=== PATIENT | female | born 1950 | race Caucasian/White ===

== ENCOUNTER → 2017-02-07 | Outpatient (CLI) | payer BC ==
[~2017-02-07] MED LIST: AMLO5TAB4 PO; ASPCH81X PO; FLNIN/ NAE; QVRINH40 INH; SIMV-151 PO
--- NOTE | 2017-02-07 14:27 | MAMMOGRAPHY REPORT ---
BILATERAL DIGITAL SCREENING MAMMOGRAM TOMOSYNTHESIS WITH CAD: 02/07/2017 CLINICAL HISTORY: Routine screening. Patient has no complaints. TECHNIQUE: Bilateral breast tomosynthesis in addition to standard 2D mammography was performed. Curre nt study was also evaluated with a Computer Aided Detection (CAD) system. COMPARISON: Comparison is made to exams dated: 02/05/2016 mammogram, 01/23/2015 mammogram, 01/10/2014 m ammogram, 01/09/2013 mammogram, 01/05/2012 mammogram, and 01/01/2011 mammogram - [facility]. BREAST COMPOSITION: There are scattered areas of fibroglandular density in both breasts. FINDINGS: There is a 6 mm focal asymmetry with associated architectural distortion in the lateral po sterior right breast, near the fatglandular interface, for which additional targeted ultrasound and possible additional mammographic views are recommended. Another possible focal area of architectural distortion is seen in the slightly medial posterior right breast, near the fatglandular interface, thought to project superiorly based on the MLO view. Additional spot compression totals and is is vi ews and possible ultrasound are recommended. A third possible area of architectural distortion is se en in the lateral posterior left breast on the CC view, for which additional spot compression tomosyn thesis views and possible ultrasound are recommended. There are scattered benign round and rim calcifications bilaterally, and a stable fede-shaped biopsy m arker clip in the 12:00 right breast. No other suspicious mass, architectural distortion or cluster o f microcalcifications is seen. IMPRESSION: ACR BI-RADS CATEGORY 0: INCOMPLETE EVALUATION: NEED ADDITIONAL IMAGING EVALUATION The bilateral areas of architectural distortion and right lateral asymmetry with associated intern architect ural distortion need additional imaging evaluation. The patient will be called to schedule an appointment. Approximately 10% of breast cancers are not detected with mammography. A negative mammographic report should not delay biopsy if a clinically suggestive mass is present. Xenia Holt M.D. ay/:02/07/2017 09:24:55 Beamer Hand: Reba VALDEZ)(Mark), [facility] letter sent: Addl Imaging 0 BI-RADS Code: ACR BI-RADS Category 0: Incomplete Evaluation: Need Additional Imaging Evaluation
== END | disposition home or self-care (01) ==
LOC: C.MAMM 08:51
PROVIDERS: ATTEND Family Medicine
DX: Z12.31 Encounter for screening mammogram for malignant neoplasm of breast (principal); N64.89 Other specified disorders of breast

== ENCOUNTER → 2017-02-16 | Outpatient (CLI) | payer BC ==
--- NOTE | 2017-02-17 07:49 | MAMMOGRAPHY REPORT ---
BILATERAL DIGITAL DIAGNOSTIC MAMMOGRAM TOMOSYNTHESIS AND TARGETED RIGHT ULTRASOUND: 02/16/2017 CLINICAL HISTORY: Callback from screening mammogram for possible architectural distortion bilaterally . TECHNIQUE: Breast tomosynthesis in addition to standard 2D mammography was performed. Bilateral spo t compression CC and MLO tomosynthesis images including C views were obtained. COMPARISON: Comparison is made to exams dated: 02/07/2017 mammogram, 02/05/2016 mammogram, 01/23/2015 m ammogram, 01/10/2014 mammogram, 01/09/2013 mammogram, and 01/05/2012 mammogram - [facility]. BREAST COMPOSITION: There are scattered areas of fibroglandular density in both breasts. FINDINGS: Spot compression views demonstrate probable subtle architectural distortion within the rig ht upper outer quadrant posteriorly. Additionally, there is an area of focal architectural distortio n in the right 12:00 to 12:30 posterior breast, best seen on the cc tomosynthesis images. The possib le architectural distortion in the left breast does not persist on the additional images, and is ther efore felt to represent normal fibroglandular tissue. Targeted ultrasound was performed of the 2 areas of architectural distortion in the right breast. In the right breast at 12:00, 4 cm from the nipple, there is an ill-defined focal hypoechoic shadowing region which measures 3 x 3 mm. When reviewing the mammogram, this likely represents shadowing from a biopsy marker clip from prior posterior stereotactic biopsy. In the right breast at 9:00, 14 cm fr om the nipple, there is an ill-defined hypoechoic heterogeneous mass which measures 1.1 x 0.6 x 0.6 c m. This is felt to correspond with the lateral architectural distortion and is indeterminant. IMPRESSION: ACR BI-RADS CATEGORY 4: SUSPICIOUS, TARGETED ULTRASOUND ACR BI-RADS CATEGORY 4: SUSPICIO US 1. Subtle focal architectural distortion in the right upper outer quadrant, with a corresponding hyp oechoic 1.1 cm mass in the right breast at 9:00 on ultrasound. The mass is indeterminate and ultraso und-guided core needle biopsy is recommended for further evaluation. 2. An additional area of architectural distortion in the right 12:00 to 12:30 posterior breast, with out a clear sonographic correlate evident. The finding is indeterminate and stereotactic tomosynthes is guided biopsy is recommended for further evaluation. 3. No persistent architectural distortion in the left breast mammographically. Findings are benign and compatible with normal fibroglandular tissue. A phone call was made to the physician's office to confirm faxed results were received. The patient has been verbally notified of the results. She tentatively scheduled the biopsies before leaving the department. Approximately 10% of breast cancers are not detected with mammography. A negative mammographic report should not delay biopsy if a clinically suggestive mass is present. Nataliia Tracy M.D. ah/:02/16/2017 12:25:07 Image Processing Engineer: Nataly PAN(Eliot)(Mark), [facility] letter sent: Abnormal 4/5 BI-RADS Code: ACR BI-RADS Category 4: Suspicious Ultrasound BI-RADS: ACR BI-RADS Category 4: Suspici ous
== END | disposition home or self-care (01) ==
LOC: C.MAMM 10:08
PROVIDERS: ATTEND Family Medicine
DX: N64.9 Disorder of breast, unspecified (principal); N63.10 Unspecified lump in the right breast, unspecified quadrant

== ENCOUNTER → 2017-02-23 | Outpatient (CLI) | payer BC ==
--- NOTE | 2017-02-23 14:15 | Discharge Instructions ---
Discharge Instructions Procedure Procedure Date: Feb 23, 2017. Reason for visit: Right Masses X2; Core Biopsy. Discharge Discharge Date: Feb 23, 2017. Discharge Diagnosis: status post breast biopsy Instructions Activity Recommendations: Additional Limitations (see below) Return to School/Work: no limitations Recommended Home Diet: No Limitations Provider Instructions: ACTIVITY RECOMMENDATIONS: * No lifting, pushing, pulling or exercising the affected side for three days. RETURN TO SCHOOL/WORK: * You may return to work/school after the procedure, but do not perform any strenuous activities for 24 to 48 hours. MEDICATIONS: * Tylenol (two 325 mg) every four to six hours if needed for mild pain (if not allergic to Tylenol). DIET: * Resume previous diet. SPECIAL CARE INSTRUCTIONS: * Keep biopsy site dry for 24 hours. May shower after 24 hours, but do not soak (bathe) incision. * May remove Tegaderm (plastic patch) tomorrow AFTER showering. * Leave the steri-strips on for one week. Allow the steri-strips to fall off by themselves. If not off after one week, you may remove them. You may place a Bandaid crosswise over the strips, if desired. * Apply ice 10 minutes on and 10 minutes off as needed. * Wear a bra at bedtime to sleep more comfortably for 2-3 days. * Your referring physician should have the results after approximately 5 to 7 business days. * Call for unusual bleeding, fever, drainage, etc or if you have any questions call during normal business hours or after hours call Dr Tracy, . FOLLOW UP VISIT: Follow-up with Referring Physician as scheduled. Allergies Coded Allergies: Amoxicillin (Verified Allergy, Intermediate, HIVES, 03/19/14) Ether (Verified Allergy, Unknown, 06/06/09) Thiopental (Verified Allergy, Unknown, 06/06/09) [place] Recommendations: Call your doctor if: * Temperature above 101 degrees * Pain not relieved by pain medicine ordered * There is increased drainage or redness from any incision * You have any unanswered questions or concerns. Your Doctors Instructions noted above were prepared by provider Nataliia Tracy. Patient Signature Section: Patient Instructions Signature Page Georgia Ibarra Patient (or Guardian) Signature/Date: I have read and understand the instructions given to me by my caregivers. Caregiver/RN/Doctor Signature/Date: The above-named patient and/or guardian has received patient instructions on this date. + Original Patient Signature Page (only) stays with chart. Please make copy for patient.
--- NOTE | 2017-02-23 14:23 | MAMMOGRAPHY REPORT ---
ULTRASOUND GUIDED BIOPSY RIGHT BREAST: 02/23/2017 CLINICAL HISTORY: Right 9:00 breast mass. PATIENT CONSENT: The procedure, risks and benefits were discussed with the patient and informed writt en consent was obtained. A timeout was performed immediately prior to the procedure. PROCEDURE DESCRIPTION: With ultrasound guidance, aseptic technique, and lidocaine as the local anesth etic (1% lidocaine to anesthetize the skin and 1% lidocaine with epinephrine to anesthetize the deepe r tissues), the mass of concern in the right 9:00 breast, 14 cm from the nipple, was sampled 5 times with a 14-gauge achieve biopsy needle. Immediately thereafter, with ultrasound guidance, aseptic johana hnique, and lidocaine as the local anesthetic, a metallic localizer ribbon-shaped clip was placed at the biopsy site. Direct pressure was applied to the site immediately post procedure and hemostasis w as achieved. Postprocedure unilateral mammograms were performed to confirm placement of the clip in the expected location of the breast mass. The patient tolerated the procedure without complication. She was given wound care instructions. The specimens were sent to pathology for analysis. COMPARISON: Comparison is made to exams dated: 02/16/2017 mammogram, 02/16/2017 ultrasound, 7 mammogram, 02/05/2016 mammogram, 01/23/2015 mammogram, and 01/10/2014 mammogram - [facility]. IMPRESSION: ULTRASOUND GUIDED BIOPSY Ultrasound-guided core needle biopsy of the right 9:00 breast mass, with clip placement. The patient will receive pathology results from her referring provider. Nataliia Tracy M.D. ah/:02/23/2017 14:17:25 Quencher Operator: Reba VALDEZ)(Mark), [facility]
--- NOTE | 2017-02-24 14:33 | MAMMOGRAPHY REPORT ---
STEREOTACTIC GUIDED BIOPSY RIGHT BREAST: 02/23/2017 CLINICAL HISTORY: Focal architectural distortion in the right 12 to 12:30 breast. PATIENT CONSENT: The procedure, risks, benefits, and alternatives of stereotactic biopsy with clip pl acement were discussed with the patient, and verbal and written consent was obtained. A timeout was performed immediately prior to the procedure. PROCEDURE DESCRIPTION: With stereotactic tomosynthesis guidance, aseptic technique, and lidocaine as a local anesthetic (1% lidocaine to anesthetize the skin and 1% lidocaine with epinephrine to anesthe tize the deeper tissues), the focal area of architectural distortion in the right 12 to 12:30 breast was sampled multiple times with a 9-gauge vacuum-assisted biopsy needle ([employer]). The path of a pproach was craniocaudal. A metallic marker clip was placed at the biopsy site. This was confirmed on postprocedure mammograms. Direct pressure was applied at the biopsy site and hemostasis was readi ly achieved. The patient tolerated the procedure without complication. She was given wound care ins tructions. COMPARISON: Comparison is made to exams dated: 02/16/2017 mammogram, 02/16/2017 ultrasound, 7 mammogram, 02/05/2016 mammogram, 01/23/2015 mammogram, and 01/10/2014 mammogram - [facility]. IMPRESSION: STEREOTACTIC GUIDED BIOPSY Tomosynthesis stereotactic-guided biopsy of the area of architectural distortion in the right 12 to 1 2:30 breast, with clip placement. The patient will receive pathology results from her referring prov ider. Nataliia Tracy M.D. /:02/23/2017 15:00:03 Tooling Supervisor: Nataly Alejandra, [facility]
--- NOTE | 2017-02-24 14:33 | MAMMOGRAPHY REPORT ---
UNILATERAL RIGHT DIGITAL DIAGNOSTIC MAMMOGRAM TOMOSYNTHESIS: 02/23/2017 CLINICAL HISTORY: Status post right breast biopsies. TECHNIQUE: Breast tomosynthesis in addition to standard 2D mammography was performed. Postprocedura l right CC and ML tomosynthesis images including C views were obtained. COMPARISON: Comparison is made to exams dated: 02/23/2017 stereotactic biopsy, 02/16/2017 mammogram, 02/07/2017 mammogram, 02/05/2016 mammogram, and 01/23/2015 mammogram - [facility]. BREAST COMPOSITION: There are scattered areas of fibroglandular density in the right breast. FINDINGS: A new ribbon-shaped biopsy marker clip is seen at the site of the biopsied right 9:[address] mass. A new T-shaped biopsy marker clip and postbiopsy changes are seen in the region of the biop sied architectural distortion in the right 12 to 12:30 breast posteriorly. A biopsy marker clip is a gain noted in the right 12:00 breast middle depth from prior benign biopsy. IMPRESSION: POST PROCEDURE IMAGING FOR MARKER PLACEMENT New biopsy marker clips status post right breast biopsies 2. Pathology results are pending. Approximately 10% of breast cancers are not detected with mammography. A negative mammographic report should not delay biopsy if a clinically suggestive mass is present. Nataliia Tracy M.D. /:02/23/2017 15:02:17 Torch Cutter: Nataly Alejandra, [facility] BI-RADS Code: Post Procedure Imaging For Marker Placement
== END | disposition home or self-care (01) ==
LOC: C.MAMM 13:29
PROVIDERS: ATTEND Family Medicine
DX: C50.911 Malignant neoplasm of unspecified site of right female breast (principal); R92.8 Other abnormal and inconclusive findings on diagnostic imaging of breast

== ENCOUNTER → 2017-07-07 | Outpatient (CLI) | payer BC ==
[~2017-07-07] MED LIST changes: +ANAS1TAB19 PO; +CALC8.5C PO; +CHOL1000 PO; -FLNIN/ NAE; +IBUP-1050 PO; +POLYSOL4 OP; -QVRINH40 INH
[2017-07-07 13:38] VITALS: BP 111/69; PULSE 90; TEMP 36.7; O2SAT 97
--- NOTE | 2017-07-07 14:16 | Radiation Oncology Follow-Up ---
Radiation Oncology Follow-Up Date of Visit Jul 07, 2017. Reason For Visit 1-month follow-up and cancer survivorship care plan no Radiation Completion Date 06/07/17 Hypo Diagnosis (1) Breast cancer Onset Date: 02/23/2017 Stage: l Permanent Comment: Abnormal right breast mammogram Status post ultrasound-guided core needle biopsy and stereotactic biopsy 2016 Core needle biopsy positive for infiltrating ductal carcinoma, stereotactic biopsy benign Estrogen receptor positive, progesterone receptor positive and HER-2/nicolas negative Status post lumpectomy and sentinel lymph node biopsy 03/30/2017 Invasive mammary carcinoma Stage pT1c [id number] Oncotype DX score of 21 Status post completion of radiation therapy utilizing hypofractionation. Radiation completed June 07, 2017 received 5130 cGy. Last Edited By: Nette Carbajal on Jul 12, 2017 09:46 History of Present Illness Ms. Ibarra presented with an abnormal mammogram. She underwent a bilateral screening mammogram on 02/07/2017 which revealed architectural distortion bilaterally and right lateral asymmetry associated with architectural distortion requiring further imaging. The patient was brought back on 2016 for a bilateral diagnostic mammogram Tomosynthesis and targeted right ultrasound which revealed: "IMPRESSION: ACR BI-RADS CATEGORY 4: SUSPICIOUS, TARGETED ULTRASOUND ACR BI-RADS CATEGORY 4: SUSPICIOUS 1. Subtle focal architectural distortion in the right upper outer quadrant, with a corresponding hypoechoic 1.1 cm mass in the right breast at 9:00 on ultrasound. The mass is indeterminate and ultrasound-guided core needle biopsy is recommended for further evaluation. 2. An additional area of architectural distortion in the right 12:00 to 12:30 posterior breast, without a clear sonographic correlate evident. The finding is indeterminate and stereotactic tomosynthesis guided biopsy is recommended for further evaluation. 3. No persistent architectural distortion in the left breast mammographically. Findings are benign and compatible with normal fibroglandular tissue." She underwent an ultrasound-guided biopsy of 2 masses in the right breast, one at 9 o'clock position in the other at the 12 o'clock position, on 02/23/2017. The biopsy of the mass at the 12 o'clock position in the right breast revealed no evidence of disease. The biopsy of the mass in the right breast at the 9 o' clock position revealed invasive ductal carcinoma that is grade 1 and was estrogen receptor positive, progesterone receptor positive and HER-2 negative with no evidence of lymphovascular space invasion or ductal carcinoma in situ. The patient underwent a right breast lumpectomy with sentinel lymph node biopsy on 03/30/[address] Harry Renee. Pathology revealed invasive ductal carcinoma that was unifocal and was 15 mm in the greatest dimension. The tumor was grade 1 with evidence of ductal carcinoma in situ. The margins were negative and the closest margin was 7 mm for both invasive ductal carcinoma and DCIS. One sentinel lymph node was excised and was negative for metastatic carcinoma. The patient was pT1cN0(sn). The patient was seen by Dr. Mauricio Mascorro who did briefly discuss anti- hormonal therapy and has sent the patient's pathology specimen for analysis by Oncotype DX. This came back with a score of 21. The final decision was to forego chemotherapy. She returned to our office and underwent a CT simulation. She was found to be a candidate for hypo-fractionation. Treatment was completed June 07, 2017. She received 5130 cGy. Interim History She has been doing well over the past month. She did have skin changes. There was redness that resolved. She then had a darker discoloration to the skin with itching. She had some areas of dry skin. These are steadily improving and resolving. There was discomfort and that has now resolved. She has been seen in medical oncology and has started Arimidex. She did not report side effects. She had fatigue and this steadily improved. Allergies Coded Allergies: Amoxicillin (Verified Allergy, Intermediate, HIVES, 03/22/17) Ether (Verified Allergy, Unknown, SEVERE OCNHG-GSODGEN-SF A CHILD, ) Thiopental (Verified Allergy, Unknown, SODIUM PENTOTHAL-SWORE AND GOT AGGRESSIVE, 03/22/17) A TEEN WITH WISDOM TEETH SURG Home Medications Scheduled Amlodipine Besylate (Norvasc), 5 MG PO QAM Anastrozole (Arimidex), 1 TAB PO DAILY Aspirin (Aspirin Chewable), 81 MG PO QAM Calcium W/ Vitamins D & K (Viactiv), 1 TAB PO QAM Cholecalciferol (Vitamin D3), 1 TAB PO QAM Ibuprofen (Advil), 400 MG PO PRN Simvastatin (Simvastatin), 20 MG PO QPM Scheduled PRN Polyethylene Glycol-Propylene (Systane), 1 DROPS OP BID PRN for lockstitch lining setter of Systems Gastrointestinal: Symptoms: WNL GI Comments: Indigestion/Reflux Better Oral: Symptoms: No Problems Respiratory: Symptoms: WNL Urinary: Symptoms: WNL Skin: Symptoms: Dry Desquamation Other Skin Symptoms: Skin discoloration per patient report Breast: Right Upper Arm Measurement: 32.8 Right Mid Arm Measurement: 27.0 Right Wrist Measurement: 16.1 Left Upper Arm Measurement: 33.9 Left Mid Arm Measurement: 27.4 Left Wrist Measurement: 16.0 Arm Dominence: Right Physical Exam Vital Signs Date Time Temp Pulse Resp B/P (MAP) Pulse Ox O2 Delivery O2 Flow Rate FiO2 07/07/17 13:38 36.7 90 16 111/69 97 Fatigue: None General Appearance: no apparent distress Eyes: normal inspection, EOMI ENT: normal ENT inspection, hearing grossly normal Neck: no adenopathy, thyroid normal Respiratory/Chest: lungs clear, no respiratory distress, no accessory muscle use Breast: Breast examination reveals resolving hyperpigmentation of the right breast. She has well-healed incisions. There are no masses or tenderness and no axillary adenopathy. She has no skin retractions or nipple changes. Using the Hudson score cosmesis she has a good outcome. The left breast showed no masses or tenderness and no axillary adenopathy. Cardiovascular: regular rate, rhythm, no gallop, no murmur Extremities: no pedal edema Neurologic/Psychiatric: no motor/sensory deficits, alert, normal mood/affect Skin: warm/dry Pain Management Patient Reports Pain: No Pain Location: None Patient Preferred Pain Scale: 0 - 10 Initial Pain Intensity: 0.0 Pain Management Plan She denied pain therefore requires no pain management. Laboratory Laboratory Results: not applicable Pathology Pathology Results: not applicable Imaging Imaging Studies: not applicable Assessment & Plan Plan: She was seen and examined by Dr. Medina. She will continue regular follow- up with medical oncology and her primary care physician. She is going to continue using Aquaphor to the area of of skin dryness. Mammography was scheduled for the right breast in 2 months and bilateral mammography in 8 months. These will be digital diagnostic mammograms. Today we completed a cancer survivorship care plan. A copy of the document was given to the patient. She was given a survivorship booklet. She will continue on the antiestrogen therapy. We asked her to return to our office in 6 months. She may call if she has any questions or concerns in the interim. Assessment & Plan (Attending) I agree with note created by Nette Carbajal PA-C. I reviewed the patient's chart and information with her. I have examined and evaluated the patient. I reviewed relevant clinical information and answered the patient's and/or family' s questions. STAPLE SIDE LASTER Total Time In Follow-Up I spent 20 minutes speaking to the patient in performing examination. I spent 20 minutes reviewing information, completing the survivorship document, and completing this note. Total Time (Attending) In Follow-Up I spent 15 minutes examining and counseling the patient. STAPLE SIDE LASTER Copy To Harry Renee M.D.; Mauricio Mascorro MD; Yarelis Hidalgo MD Problem Qualifiers (1) Breast cancer: Breast location: central portion of breast Estrogen receptor status: positive Patient sex: female Laterality: right Qualified Codes: C50.111 - Malignant neoplasm of central portion of right female breast; Z17.0 - Estrogen receptor positive status [ER+]
== END | disposition home or self-care (01) ==
LOC: C.ONC 13:24
PROVIDERS: ATTEND Physician Assistant Medical
DX: Z08 Encounter for follow-up examination after completed treatment for malignant neoplasm (principal); Z92.3 Personal history of irradiation; Z85.3 Personal history of malignant neoplasm of breast

== ENCOUNTER → 2017-07-27 | Outpatient (CLI) | payer BC | END | disposition home or self-care (01) | LOC: C.LAB 13:49 | PROVIDERS: ATTEND Family Medicine | DX: E78.5 Hyperlipidemia, unspecified (principal) ==

== ENCOUNTER → 2017-09-06 | Outpatient (CLI) | payer BC ==
--- NOTE | 2017-09-06 15:13 | MAMMOGRAPHY REPORT ---
UNILATERAL RIGHT DIGITAL DIAGNOSTIC MAMMOGRAM TOMOSYNTHESIS WITH CAD: 09/06/2017 CLINICAL HISTORY: 66-year-old woman with a personal history of right breast infiltrative ductal adeno carcinoma presents for first follow-up in the right breast after treatment. Patient has a history of an additional stereotactic biopsy in the 12:00 to 1:00 posterior right breast which yielded fibrocys tic change. A remote benign stereotactic biopsy in the 12:00 middle one third of the right breast. TECHNIQUE: Right breast tomosynthesis in addition to standard 2D mammography was performed. Spot ma gnification right CC and ML views were also obtained. Current study was also evaluated with a Comput er Aided Detection (CAD) system. COMPARISON: Comparison is made to exams dated: 03/30/2017 specimen, 03/30/2017 localization, 017 mammogram, 02/23/2017 ultrasound biopsy, 02/23/2017 stereotactic biopsy, and 02/16/2017 [facility]. BREAST COMPOSITION: There are scattered areas of fibroglandular density in the right breast. FINDINGS: A linear scar marker overlies the upper outer posterior right breast, denoting the skin sca r from prior lumpectomy. There is expected architectural distortion and 2 surgical clips in the uppe r outer posterior right breast denoting the lumpectomy bed. There are stable metallic biopsy marker clips in the 12:00 posterior and middle one third of the right breast. There is mild persistent arch itectural distortion at the site of the more recent stereotactic biopsy denoted by the T-shaped biops y marker clip, which represented benign fibrocystic change. The residual distortion could represent postbiopsy change but a short interval follow-up diagnostic tomosynthesis mammogram is recommended to ensure stability in 6 months. There are scattered benign round and rim calcifications throughout th e right breast. No new suspicious masses, asymmetries, unexpected architectural distortion or develo ping calcifications are identified. IMPRESSION: ACR-BI-RADS CATEGORY 3: PROBABLY BENIGN 1. Expected postsurgical/posttreatment changes in the right breast, without definite mammographic ev idence of malignancy. Recommend right diagnostic tomosynthesis mammograms and possible ultrasound in 6 months to ensure stability after treatment, and also to reassess a small area of architectural dis tortion near the T-shaped biopsy marker clip in the 12:00 posterior right breast, which yielded benig n fibrocystic change. 2. Annual left mammography will also be due at the time of next six-month follow-up. 3. Given the personal history of right breast cancer, consider additional surveillance with breast M RI. These results and recommendations were discussed with the patient at the time of the exam. Approximately 10% of breast cancers are not detected with mammography. A negative mammographic report should not delay biopsy if a clinically suggestive mass is present. Xenia Holt M.D. ay/:09/06/2017 09:44:40 Branch Office Manager: Nataly Alejandra, [facility] letter sent: Follow Up Recommended 3 BI-RADS Code: ACR-BI-RADS Category 3: Probably Benign
== END | disposition home or self-care (01) ==
LOC: C.MAMM 09:09
PROVIDERS: ATTEND Physician Assistant Medical
DX: Z08 Encounter for follow-up examination after completed treatment for malignant neoplasm (principal); C50.011 Malignant neoplasm of nipple and areola, right female breast

== ENCOUNTER → 2017-12-12 | Outpatient (CLI) | payer BC ==
[~2017-12-12] MED LIST changes: +ACET-1256 PO; -ANAS1TAB19 PO; +ANAS1TAB59 PO; +CAL1CHW4 PO; +PRLSR20 PO
== END | disposition home or self-care (01) ==
LOC: C.MAMM 07:46
PROVIDERS: ATTEND Internal Medicine Hematology & Oncology
DX: C50.919 Malignant neoplasm of unspecified site of unspecified female breast (principal)